=== PATIENT | male | born 1970 | race Caucasian/White ===

== ENCOUNTER 2016-06-08 21:37 | Emergency (ER) | payer OTHER ==
[~2016-06-08] VITALS: Ht 172.7 cm; Wt 86.5 kg
[2016-06-08 22:00] VITALS: BP 146/84; PULSE 72; RESP 16; TEMP 98.5; O2SAT 97
[2016-06-08] MEDS ORDERED: LIDOCAINE 1%/EPINEPHrine 1:100,000 SOLN 20 ML VIAL INFIL ONE (22:00)
[2016-06-08] MEDS ORDERED: HYDR25TA5 PO (22:12)
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
[2016-06-08] MEDS ORDERED: GELATIN 12 MM/7 MM FOAM TOPICAL ONE (22:45)
--- NOTE | 2016-06-08 22:59 | PD ---
Physical Exam Time Seen by Provider: 22:56 Narrative I was asked to perform a laceration repair by Dr. Peñaloza, for further details regarding the patient's visit please see the physician's documentation. Data Data Last Documented VS Vital Signs Date Time Temp Pulse Resp B/P Pulse Ox O2 Delivery O2 Flow Rate FiO2 06/08/16 22:00 98.5 72 16 146/[address] Brain W/O Iv Contrast(Rout) (06/08/16 ) Ct Cerv Spine W/O Contrast (06/08/16 ) Cefazolin Inj (Ancef Inj) (06/08/16 22:00) Lidocai-Epi 1%-1:100,000 Inj (Xylocaine- (06/08/16 22:00) Gelatin 12 Mm/7 Mm Top (Gelfoam 12 Mm/7 (06/08/16 22:45) MDM Supervised Visit with ELVIA: No Procedures Procedure Narrative This was a complicated head laceration with abrasions and avulsion of tissue. There was one major laceration 9 cm in length and one smaller laceration 3 cm in length. The area of avulsion approximately 4 x 3 cm was cleaned and Gelfoam was applied. LACERATION LOCATION: Right lateral scalp LENGTH: 9 cm NUMBER OF STITCHES/EUGENE: 15 sutures REPAIR: The area of the laceration was prepped with Betadine and sterilely draped. The laceration was infiltrated with 1% lidocaine with epinephrine. The wound was copiously irrigated and explored without evidence of foreign body , tendon injury or neurovascular injury. The wound was closed using 3. 0 Ethilon. This was a single layer repair. Antibiotic ointment and a sterile dressing was applied. The patient was advised to keep the dressing clean and dry. Patient tolerated the procedure well. LACERATION LOCATION: Top of scalp LENGTH: 3 cm NUMBER OF STITCHES/EUGENE: 3 sutures REPAIR: The area of the laceration was prepped with Betadine and sterilely draped. The laceration was infiltrated with 1% lidocaine with epinephrine. The wound was copiously irrigated and explored without evidence of foreign body , tendon injury or neurovascular injury. The wound was closed using 4. 0 Ethilon. This was a single layer repair. Antibiotic ointment and a sterile dressing was applied. The patient was advised to keep the dressing clean and dry. Patient tolerated the procedure well. Greer Jamil Jun 08, 2016 22:59
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
[2016-06-09] MEDS ORDERED: oxyCODONE/ACETAMINOPHEN 5 MG/325 MG TAB PO ONE
[2016-06-09] MEDS ORDERED: CEPH-460 PO (00:02)
[2016-06-09] MEDS ORDERED: PERC5TAB12 PO (00:02)
[2016-06-09 00:21] VITALS: BP 154/90
== END 2016-06-09 01:20 | disposition home or self-care (01) ==
LOC: NEPA 21:37
DX: S01.01XA Laceration without foreign body of scalp, initial encounter (principal); S00.01XA Abrasion of scalp, initial encounter; S09.90XA Unspecified injury of head, initial encounter; V24.4XXA Motorcycle driver injured in collision with heavy transport vehicle or bus in traffic accident, initial encounter; Y92.410 Unspecified street and highway as the place of occurrence of the external cause
CPT/HCPCS: 12004; 70450; 72125; 96374; 99284; J0690